=== PATIENT | male | born 1970 | race Caucasian/White ===

== ENCOUNTER 2018-03-04 14:43 | Inpatient (IN) | payer MEDICAID ==
[~2018-03-04] VITALS: Ht 172.7 cm; Wt 55.0 kg
[2018-03-04 14:52] VITALS: Ht 172.7 cm; Wt 55.0 kg
[2018-03-04 16:43] LABS: CALCIUM 9.4 mg/dL (8.5-10.1); CARBON DIOXIDE 27.9 mmol/L (21-32); CREATININE SERUM 1.9 mg/dL (0.7-1.3); POTASSIUM SERUM 5.1 mmol/L (3.5-5.1)
[2018-03-04 16:45] LABS: BASOPHIL % 0.4 % (0-2); PLATELET COUNT 350 x10^3mcL (130-400)
[2018-03-04 16:46] LABS: RED CELL DISTRIBUTION WIDTH 19.9 % (11.5-14.5)
[2018-03-04 16:49] LABS: ALBUMIN 3.7 g/dL (3.4-5.0); BILIRUBIN TOTAL 1.9 mg/dL (0.20-1.00); TOTAL PROTEIN, SERUM 7.9 g/dL (6.4-8.2)
[2018-03-04 19:39] LABS: MAGNESIUM 2.2 mg/dL (1.8-2.4); PHOSPHOROUS 5.2 mg/dL (2.5-4.9)
[2018-03-04 19:48] LABS: T3 TOTAL 0.56 ng/mL
[2018-03-04 19:49] LABS: FREE T4 1.11 ng/dL (0.76-1.46); FREE THYROXINE INDEX 2.9 ug/dL (1.4-4.5); T4(THYROXINE) 7.5 ug/dL (4.7-13.3)
[2018-03-04 20:04] VITALS: BP 97/72
[2018-03-05 00:22] LABS: microscopic required? NO
[2018-03-05 00:34] LABS: UA SPECIFIC GRAVITY <=1.005 (1.005-1.035); urine erythrocyte NEGATIVE (NEGATIVE)
[2018-03-05 01:07] LABS: AMPHETAMINE QUAL UR NONE DETECTED (See below)
[2018-03-05 05:25] VITALS: BP 102/73
[2018-03-05 06:35] LABS: CALCIUM 8.9 mg/dL (8.5-10.1); CARBON DIOXIDE 27.2 mmol/L (21-32); CREATININE SERUM 1.7 mg/dL (0.7-1.3); MAGNESIUM 1.7 mg/dL (1.8-2.4); PHOSPHOROUS 4.8 mg/dL (2.5-4.9); POTASSIUM SERUM 4.3 mmol/L (3.5-5.1)
[2018-03-05 06:55] LABS: BASOPHIL % 1.4 % (0-2); PLATELET COUNT 283 x10^3mcL (130-400)
[2018-03-05 07:02] LABS: RED CELL DISTRIBUTION WIDTH 19.6 % (11.5-14.5)
[2018-03-05 09:07] VITALS: BP 101/74
[2018-03-05 13:19] VITALS: BP 107/77
[2018-03-05] MEDS ORDERED: LASIX20 MG PO (16:16)
[2018-03-05] MEDS ORDERED: LOSARTAN POTASS25 M1 PO (16:16)
[2018-03-05] MEDS ORDERED: LEXAPRO20 MG PO (16:17)
[2018-03-05] MEDS ORDERED: LOPRESSOR50 M1 PO (16:20)
[2018-03-05] MEDS ORDERED: FOL1 PO (16:21)
[2018-03-05] MEDS ORDERED: ALDACTONE25 MG PO (16:21)
[2018-03-05] MEDS ORDERED: VITAMIN B1 PO (16:23)
[2018-03-05] MEDS ORDERED: ATIVAN1 MG PO (16:24)
[2018-03-05 17:38] VITALS: BP 101/73
[2018-03-05 21:10] VITALS: BP 110/77
[2018-03-05 22:34] VITALS: BP 110/77
[2018-03-06 05:33] VITALS: BP 101/76
[2018-03-06 06:46] LABS: BASOPHIL % 1.2 % (0-2); PLATELET COUNT 342 x10^3mcL (130-400)
[2018-03-06 07:09] LABS: RED CELL DISTRIBUTION WIDTH 19.9 % (11.5-14.5)
[2018-03-06 08:19] LABS: CALCIUM 8.6 mg/dL (8.5-10.1); CREATININE SERUM 1.5 mg/dL (0.7-1.3); POTASSIUM SERUM 3.9 mmol/L (3.5-5.1)
[2018-03-06 08:26] VITALS: BP 103/77
[2018-03-06 09:32] LABS: MAGNESIUM 2.3 mg/dL (1.8-2.4); PHOSPHOROUS 4.2 mg/dL (2.5-4.9)
[2018-03-06 13:11] VITALS: BP 98/74
[2018-03-06] MEDS ORDERED: COR6 PO (14:42)
[2018-03-06] MEDS ORDERED: ECO81 PO (14:43)
[2018-03-06 15:49] VITALS: BP 98/74
== END 2018-03-06 17:36 | disposition home or self-care (01) | DRG 194 ==
LOC: ED 14:43 → DU 18:23
PROVIDERS: Internal Medicine
DX: I50.43 Acute on chronic combined systolic (congestive) and diastolic (congestive) heart failure (principal); N17.0 Acute kidney failure with tubular necrosis; E11.65 Type 2 diabetes mellitus with hyperglycemia; E83.39 Other disorders of phosphorus metabolism; K70.30 Alcoholic cirrhosis of liver without ascites; F10.20 Alcohol dependence, uncomplicated; E87.1 Hypo-osmolality and hyponatremia; E83.42 Hypomagnesemia; I42.6 Alcoholic cardiomyopathy; E03.9 Hypothyroidism, unspecified; F15.21 Other stimulant dependence, in remission; I25.2 Old myocardial infarction; Z68.1 Body mass index [BMI] 19.9 or less, adult; Z91.19 Patient's noncompliance with other medical treatment and regimen
CPT/HCPCS: 82962; 83880; 84439; G0480; J1644; J1940; J2405; J3475; J7040; Q0092

== ENCOUNTER 2019-02-18 06:37 | Emergency (ER) | payer OTHER ==
[~2019-02-18] VITALS: Ht 175.3 cm; Wt 65.8 kg
[~2019-02-18 06:37] MED LIST: ALDACTONE25 MG PO; ATIVAN1 MG PO; COR6 PO; ECO81 PO; FOL1 PO; LASIX20 MG PO; LEXAPRO20 MG PO; LOPRESSOR50 M1 PO; LOSARTAN POTASS25 M1 PO; VITAMIN B1 PO
[2019-02-18 06:38] VITALS: Ht 175.3 cm; Wt 65.8 kg
[2019-02-18 07:05] VITALS: BP 119/77
== END 2019-02-18 07:05 | disposition other institution (70) ==
LOC: ED 06:37
DX: Z02.89 Encounter for other administrative examinations (principal)